=== PATIENT | female | born 1995 | race Caucasian/White ===

== ENCOUNTER 2019-12-03 14:07 | Emergency (ER) | payer OTHER ==
[2019-12-03 14:20] VITALS: BP 126/75; PULSE 77; BMI 27.8
--- NOTE | 2019-12-03 15:56 | PDOC ---
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 Audit-10AR): Negative In the last yr the pt used illegal drug/Rx for NonMed reason: No Score: Yes response is considered Positive: 0 Screen Result (Positive result requires Nsg. DAST-10): Negative Review of Systems - Review of Systems Constitutional: No: Fever Respiratory: No: Cough, Shortness of Breath, Wheezing ABD/GI: No: Nausea, Vomiting Neurological: Yes: Dizziness. No: Headache, Numbness, Tingling, Weakness *Physical Exam - Vital Signs Last Vital Signs Temp Pulse Resp BP Pulse Ox 77 18 126/75 99 12/03/19 14:14 12/03/19 14:14 12/03/19 14:14 12/03/19 14:14 - Physical Exam General Appearance: Yes: Appropriately Dressed. No: Apparent Distress HEENT: positive: Normal Voice Neck: positive: Supple Respiratory/Chest: negative: Respiratory Distress Integumentary: positive: Dry, Warm Neurologic: positive: Fully Oriented, Alert, Normal Mood/Affect Medical Decision Making - Medical Decision Making 12/03/19 15:51 24-year-old female no significant history here with complaint that she has mold in her apartment and that she feels like it is in her body because for the past year she has episodes where she smells it and tastes and becomes dizzy. No shortness of breath or cough. States she has been to see several doctors requesting a blood test for mold but was told there is no such test. Patient has also contacted her landlord and has tried to call the news to make him aware of situation but states no one will help. States she is on government assistance and has nowhere else to go. Patient well-appearing and stable. Had extensive discussion regarding the fact that there is no specific blood test for mold but that it is important that she tries to find a way to move out of that environment if landlord will not fix the situation. Patient told she can go to [facility] with pictures of mold that patient has in her phone and have them evaluate this condition Discharge - Discharge Information Problems reviewed: Yes Clinical Impression/Diagnosis: Mold exposure Condition: Good Disposition: HOME - Follow up/Referral - Patient Discharge Instructions Additional Instructions: You should follow up right with your PMD for further evaluation You should go to [facility] with the pictures of the mold in your home and have them evaluate - Post Discharge Activity
== END 2019-12-03 16:01 | disposition home or self-care (01) ==
LOC: JER 14:07 → JERFT 14:07
DX: Z77.120 Contact with and (suspected) exposure to mold (toxic) (principal)
CPT/HCPCS: 99283-25

== ENCOUNTER 2021-03-13 22:40 | Emergency (ER) | payer OTHER ==
[2021-03-13 23:11] VITALS: TEMP 99.1; BMI 22.9
[2021-03-14] MEDS ORDERED: ACETAMINOPHEN 1000 MG/100 ML VIAL IVPB ONE (00:19)
[2021-03-14] MEDS ORDERED: METOCLOPRAMIDE HCL INJECTION 10 MG/2 ML VIAL IVPB ONE (00:19)
[2021-03-14] MEDS ORDERED: METOCLOPRAMIDE HCL INJECTION 10 MG/2 ML VIAL ONE (00:27)
[2021-03-14] MEDS ORDERED: ACETAMINOPHEN INJECTION 100 ML IVPB ONE (00:28)
[2021-03-14 00:51] LABS: BASO % 0.5 % (0-2.0); EOS % 0.2 % (0-4.5); HEMATOCRIT 38.5 % (32.4-45.2); HEMOGLOBIN 12.8 GM/dL (10.7-15.3); LYMPH % 12.1 % (8-40); MCHC 33.2 g/dl (32.0-36.0); MEAN CELL VOLUME 87.4 fl (80-96); MEAN PLT VOLUME 7.3 fl (7.5-11.1); MONO % 12.3 % (3.8-10.2); NEUT % 74.9 % (42.8-82.8); PLATELET COUNT 255 10^3/uL (134-434); RDW 13.3 % (11.6-15.6); WHITE BLOOD COUNT 6.6 K/mm3 (4.0-10.0)
[2021-03-14 00:57] LABS: INR 1.17 (0.83-1.09); PROTHROMBIN TIME (PATIENT) 13.7 SEC (9.7-13.0)
[2021-03-14 01:00] LABS: ACTIVATED PTT 30.7 SECONDS (25.2-36.5)
[2021-03-14 01:14] LABS: CALCIUM 8.9 mg/dL (8.5-10.1)
[2021-03-14 01:15] LABS: BLOOD UREA NITROGEN 9.1 mg/dL (7-18)
[2021-03-14 01:18] LABS: CREATININE 0.7 mg/dL (0.55-1.3)
[2021-03-14 01:19] LABS: BILIRUBIN,TOTAL 0.1 mg/dL (0.2-1); TOT PROT 7.7 g/dl (6.4-8.2)
[2021-03-14] MEDS ORDERED: LACTATED RINGERS SOLUTION 1000 ML INFUS.BAG IV ONE (03:29)
[2021-03-14 04:10] LABS: URINE APPEARANCE CLEAR; URINE BILIRUBIN NEGATIVE (NEGATIVE); URINE COLOR YELLOW; URINE GLUCOSE (UA) NEGATIVE (NEGATIVE); URINE KETONE NEGATIVE (NEGATIVE); URINE LEUK ESTERASE NEGATIVE (NEGATIVE); URINE NITRITE NEGATIVE (NEGATIVE); URINE PROTEIN NEGATIVE (NEGATIVE); URINE UROBILINOGEN 0.2 mg/dL (0.2-1.0)
[2021-03-14 04:19] VITALS: BP 101/68; PULSE 69
== END 2021-03-14 04:32 | disposition home or self-care (01) ==
LOC: JER 22:40
PROC: 3E033NZ Introduction of Analgesics, Hypnotics, Sedatives into Peripheral Vein, Percutaneous Approach (ICD-10-PCS; principal; 2021-03-14)
PROC: 3E033GC Introduction of Other Therapeutic Substance into Peripheral Vein, Percutaneous Approach (ICD-10-PCS; 2021-03-14)
DX: R51.9 Headache, unspecified (principal)
CPT/HCPCS: 36415; 70450-TC; 70496-TC; 70498-TC; 80053; 81003; 84703; 85025; 85610; 85730; 87086; 87186; 96374; 96375; 99285-25; J0131; Q9967

== ENCOUNTER 2022-02-12 11:03 | Emergency (ER) | payer OTHER ==
[2022-02-12 11:11] VITALS: BP 108/71; PULSE 83; RESP 17; TEMP 98.3; BMI 23.9
[2022-02-12] MEDS ORDERED: ACETAMINOPHEN 500 MG TABLET (FP) PO ONE (11:43)
[2022-02-12] MEDS ORDERED: ACETAMINOPHEN 500 MG TABLET (FP) ONE (13:02)
== END 2022-02-12 14:05 | disposition left against medical advice (07) ==
LOC: JER 11:03
DX: N64.4 Mastodynia (principal)
CPT/HCPCS: 76642-TC-RT; 84703; 99284-25